=== PATIENT | male | born 1935 | race Caucasian/White ===

== ENCOUNTER 2017-03-14 08:39 | Inpatient (IN) | payer OTHER ==
[~2017-03-14] VITALS: Ht 172.7 cm; Wt 88.2 kg
[~2017-03-14 08:39] MED LIST: ATI1 PO; ECO81 PO; GLIPIZIDE1 PO1; GLIPIZIDE10 MG PO; LOP600 PO; LOT1C TOP; METFORMIN HCL1000 MG PO; ZESTRIL5 MG PO; ZOC10 PO
--- NOTE | 2017-03-14 09:21 | NUR ---
MSE COMPLETED BY DR. GONSALEZ
--- NOTE | 2017-03-14 09:36 | NUR ---
PT ATTEMPTING TO PROVIDE A URINE SAMPLE AT THIS TIME WITH URINAL PROVIDED
[2017-03-14 09:44] LABS: BASOPHIL % 0.1 % (0-2); PLATELET COUNT 292 x10^3mcL (130-400); RED CELL DISTRIBUTION WIDTH 13.8 % (11.5-14.5)
--- NOTE | 2017-03-14 10:00 | NUR ---
PT UNABLE TO PROVIDE URINE SAMPLE AT THIS TIME, INST PT TO PROVIDE URINE SAMPLE SOON POSSIBLE, IVF CURRENTLY INFUSING AT THIS TIME PER MD ORDER, PLEASE SEE EMAR, PT SOFY WELL, CALL LIGHT WITHIN REACH
[2017-03-14 10:03] LABS: ALKALINE PHOSPHATASE 94 U/L (46-116); ALT/SGPT 17 U/L (16-63); AST/SGOT 25 U/L (15-37); CARBON DIOXIDE 29.7 mmol/L (21-32); CHLORIDE SERUM 93 mmol/L (98-107); GLUCOSE SERUM 310 mg/dL (74-106); MAGNESIUM 1.4 mg/dL (1.8-2.4); PHOSPHOROUS 3.2 mg/dL (2.5-4.9); POTASSIUM SERUM 4.1 mmol/L (3.5-5.1); SODIUM SERUM 134 mmol/L (136-145); TOTAL PROTEIN, SERUM 7.2 g/dL (6.4-8.2)
--- NOTE | 2017-03-14 10:04 | NUR ---
PT TO BED 7 FOR C/O HIGH BLOOD SUGAR AND FEELING WEAK X 6-7 DAYS, BS IN TRIAGE 310, PT REPORTS HE WALKED HERE WITH HIS SON, PT STATING HE SAW HIS DOCTOR AND WAS PRESCRIBED MEDICATION BUT UNRECALLED OF THE NAME OF THE MEDICATION HE WAS PRESCRIBED, PT REPORTS HE HAD 1 EPISODE OF EMESIS THIS MORNING AFTER DRINKING MILK, PT STATING "I DON'T FEEL WELL" PT DENIES ANY PAIN, DENIES ANY DIZZINESS, PT AWAKE ALERT AND APPROPRIATE FOR AGE, ABLE TO VERBALIZE NEEDS BUT APPEARS TO BE A POOR HISTORIAN, PT RESP EVEN AND UNLABORED, IN NO ACUTE DISTRESS, CALL LIGHT WITHIN REACH, WILL CONTINUE TO MONITOR
[2017-03-14 10:08] LABS: ALBUMIN 2.8 g/dL (3.4-5.0)
[2017-03-14 10:10] LABS: CREATININE SERUM 4.5 mg/dL (0.7-1.3)
--- NOTE | 2017-03-14 10:47 | NUR ---
PT DAUGHTER AT BEDSIDE AT THIS TIME, DAUGHTER STS PT LIVES WITH SON AT HOME, DAUGHTER STS "HE IS STUBBORN" INQUIRED DAUGHTER IF SHE KNOWS THE MEDICATIONS PT TAKES AT HOME, PER DAUGHTER SHE WILL ASK HER BROTHER TO LOOK FOR PTS MEDICATIONS AT HOME, PT UNABLE TO STATE NAMES OF MEDICATION WHEN ASKED AGAIN BUT STS NEVER MISSED ANY DOSES WHEN ASKED, DAUGHTER STS HE SAW HIS DOCTOR LAST WEEK, DAUGHTER LEFT TO ATTEMPT TO RECEIVE PTS AT HOME MEDICATION LIST
--- NOTE | 2017-03-14 10:53 | NUR ---
PT ATTEMPTING TO PROVIDE URINE SAMPLE AT THIS TIME, URINAL PROVIDED, CALL LIGHT WTIHIN REACH
--- NOTE | 2017-03-14 12:01 | NUR ---
DR. GONSALEZ AT BEDSIDE DISCUSSING POC WITH PT AND PTS FAMILY MEMBER AT BEDSIDE AT THIS TIME
--- NOTE | 2017-03-14 12:13 | NUR ---
URINE DIPPED AND SENT TO LAB, DR. GONSALEZ DISCUSSING RESULTS WITH PT AND PTS FAMILY MEMBER AT THIS TIME
--- NOTE | 2017-03-14 12:53 | NUR ---
IV ABX INFUSING AT THIS TIME PER MD ORDER, PLEASE SEE GRETTA PT SOFY WELL, FAMILY MEMBERS AT BEDSIDE AT THIS TIME, MRSA SWAB COLLECTED AND SENT TO LAB
[2017-03-14 13:09] LABS: microscopic required? YES; urine erythrocyte 2+ (NEGATIVE)
--- NOTE | 2017-03-14 13:34 | NUR ---
REPORT GIVEN TO ISIDRO CHOWDHURY TELE FLOOR TO ASSUME CARE OF PT
[2017-03-14] MEDS ORDERED: LIPI10 PO (13:36)
[2017-03-14] MEDS ORDERED: DITROPAN XL15 MG PO (13:36)
[2017-03-14] MEDS ORDERED: INVOKANA100 MG PO (13:36)
[2017-03-14] MEDS ORDERED: IBUPROFEN400 MG PO (13:37)
[2017-03-14] MEDS ORDERED: PHENAZOPYRIDIN200 M3 PO (13:37)
[2017-03-14] MEDS ORDERED: MAPAP325 MG PO (13:38)
[2017-03-14] MEDS ORDERED: CIPRO500 MG PO (13:38)
--- NOTE | 2017-03-14 13:41 | NUR ---
REC'D PT FROM ER VIA [facility]. PT IS AAOX3, FORGETFUL. TELE #30 SR. DENIES PAIN. RESP EVEN AND UNLABORED. NO SOB NOTED. 1+ EDEMA NOTED TO BLE. ABD SOFT. BS ACTIVE X4. DENIES ABD PAIN OR N/V AT THIS TIME. PT C/O DIFFICULTY URINATING. IV NOTED TO LFA. INTACT AND PATENT. ORIENTED PT TO CALL LIGHT. BED IN LOWEST POSITION. WILL ENDORSE TO PRIMARY RN.
[2017-03-14 13:54] LABS: T3 TOTAL 0.59 ng/mL
[2017-03-14 13:55] VITALS: BP 130/66
[2017-03-14 14:04] LABS: FREE T4 1.18 ng/dL (0.76-1.46); FREE THYROXINE INDEX 2.6 ug/dL (1.4-4.5); T4(THYROXINE) 7.7 ug/dL (4.7-13.3)
--- NOTE | 2017-03-14 14:16 | NUR ---
RECEIVED REPORT FROM [facility]ON FELIX ADMITTING NURSE MADE AWARE PT'S RHYTHM ON MONITOR WAS IN AND OUT AFIB HR IN 90S AND RECEIVED TROP LEVEL OF 0.422. DR. MILES PAGED AND RETURN CALL MADE AWARE. AWAITING FURTHER ORDERS.
--- NOTE | 2017-03-14 15:00 | NUR ---
MADE AWARE PT RHYTHM CHANGED FROM AFIB TO IN AND OUT OF SR AND SA. MESSAGE SENT TO DR. MILES.
--- NOTE | 2017-03-14 15:10 | NUR ---
DR. MILES IN TO UPDATE PT AND FAMILY ON CONDITION AND POC. DISCUSSED +TROP, AFIB AND KIDNEY FUNCTION ISSUES WITH PT/FAMILY.
[2017-03-14 17:24] VITALS: BP 113/66
--- NOTE | 2017-03-14 17:50 | NUR ---
DR. MILES MADE AWARE VIA [facility], THAT PT'S RHYTHM ON TELE HAS NOT GONE TO AFIB SINCE RIGHT BEFORE 3PM HAS BEEN GOING IN AND OUT OF SR/SA/ST. HR 77-114. WILL CONT TO MONITOR.
--- NOTE | 2017-03-14 18:10 | NUR ---
NO LACTIC ACID ORDER NOTED. MESSAGE SENT TO DR. MILES. WILL CONT TO MONITOR.
--- NOTE | 2017-03-14 20:00 | NUR ---
PT A/A/O X3, FAMILY AT BEDSIDE. PT DENIES DIZZINESS AND HEADACHE. BREATH SOUNDS CLEAR. BREATHING EVEN AND UNLABORED ON ROOM AIR. DENIES CHEST PAIN AND PRESSURE. BOWEL SOUNDS ACTIVE. NO C/O N/V AND ABD PAIN. C/O DIFFICULTY URINATING. IV INTACT ON THE LEFT FOREARM INFUSING WITH NS AT 100 ML/HR. MADE PT COMFORTABLE. PLACED CALL LIGHT WITH IN REACH. WILL CONTINUE TO MONITOR.
[2017-03-14 21:13] LABS: AMPHETAMINE QUAL UR NONE DETECTED (NEG <=1000)
[2017-03-14 21:25] VITALS: BP 116/60
--- NOTE | 2017-03-15 00:58 | NUR ---
PT RESTING WITH EYES CLOSED. NO DISTRESS AND DISCOMFORT NOTED. WILL CONTINUE TO MONITOR.
--- NOTE | 2017-03-15 05:54 | NUR ---
PT QUIET AND RESTING. NO SIGNIFICANT CHANGES NOTED. IV INTACT AND INFUSING ORDERED. WILL ENDORSE TO THE AM NURSE ACCORDINGLY.
[2017-03-15 05:59] VITALS: BP 129/51
[2017-03-15 06:13] LABS: BASOPHIL % 0.1 % (0-2); PLATELET COUNT 276 x10^3mcL (130-400); RED CELL DISTRIBUTION WIDTH 14.4 % (11.5-14.5)
[2017-03-15 06:47] LABS: CALCIUM 8.3 mg/dL (8.5-10.1); CARBON DIOXIDE 29.6 mmol/L (21-32); CHLORIDE SERUM 99 mmol/L (98-107); GLUCOSE SERUM 140 mg/dL (74-106); MAGNESIUM 2.1 mg/dL (1.8-2.4); POTASSIUM SERUM 4.4 mmol/L (3.5-5.1); SODIUM SERUM 139 mmol/L (136-145)
--- NOTE | 2017-03-15 07:10 | NUR ---
PT IN BED, SITTING AT SIDE OF BED. NO DISTRESS. DENIES TREVIZO, CP, DIZZINESS. ABLE TO VERBALIZE NEEDS. IV INFUSING WELL TO LAC #20 NS 100ML/HR. CALL LIGHT WITHIN REACH, BED IN LOWEST POSITION.
[2017-03-15 07:16] LABS: CREATININE SERUM 4.7 mg/dL (0.7-1.3)
--- NOTE | 2017-03-15 08:45 | NUR ---
HEPARIN INFUSION TO BE INITIATED. HEPARIN PROTOCOL IN PLACE. CALCULATION COMPLETED. PT VERBALIZED UNDERSTANDING FOR THERAPY. GRANDDAUGHTER AT BEDSIDE. HEPARIN INFUSION VERIFIED BY ISIDRO LEE. INFUSION RATE AT 11ML/HR, BOLUS OF 5300UNITS GIVEN, PTT ORDERED IN 6HRS. (1500) PER PROTOCOL. CALL LIGHT WITHIN REACH. WILL CONTINUE TO MONITOR.
[2017-03-15 09:40] VITALS: BP 141/53
[2017-03-15 13:20] VITALS: BP 118/61
--- NOTE | 2017-03-15 13:25 | NUR ---
PT EATING LUNCH MEAL AT BEDSIDE CHAIR. TOLERATING DIET WELL. PASSED NOON MEDS, PT TOLERATED WELL. CALL LIGHT WITHIN REACH. FAMILY AT BEDSIDE.
--- NOTE | 2017-03-15 16:45 | NUR ---
RECEIVED LAB VALUE PTT: 70.2 HEPARIN INFUSION LOWERED TO 900UNITS/HR PER HEPARIN PROTOCOL. NEXT PTT ORDER IN 4HRS. WILL CONTINUE TO MONITOR.
[2017-03-15 17:00] VITALS: BP 89/62
--- NOTE | 2017-03-15 18:00 | NUR ---
HEPARIN INFUSION DC'D PER ORDER. PT TO START ORAL MEDICATION.
[2017-03-15 18:43] VITALS: BP 144/89
--- NOTE | 2017-03-15 20:36 | NUR ---
RECEIVED PT IN BED AAOX4 NO ACUTE DISTRESS NOTED , LUNG SOUNDS CTA , ABD SOFT BS ACTIVE X4 ON TELE NUMBER 30 THAT SHOWS NSR , PIV INTACT INFUSING WELL , CALL LIGHT WITHIN PT'S REACH , WILL CON'T TO MONITOR PT CLOSELY.
[2017-03-15 21:52] VITALS: BP 114/53
--- NOTE | 2017-03-16 02:02 | NUR ---
PT'S IN BED WITH EYES CLOSED PIV INTACT INFUSING WELL , TELE NSR .
[2017-03-16 06:01] VITALS: BP 136/63
[2017-03-16 06:26] LABS: BASOPHIL % 0.6 % (0-2); PLATELET COUNT 282 x10^3mcL (130-400); RED CELL DISTRIBUTION WIDTH 14.5 % (11.5-14.5)
--- NOTE | 2017-03-16 06:26 | NUR ---
ALL DUE MEDS GIVEN NO REACTION NOTED , PIV INTACT INFUSING WELL, KEPT PT CLEAN AND DRY AT ALL THE TIME , TELE NSR .
[2017-03-16 06:52] LABS: CALCIUM 8.2 mg/dL (8.5-10.1); CARBON DIOXIDE 25.2 mmol/L (21-32); CHLORIDE SERUM 103 mmol/L (98-107); GLUCOSE SERUM 97 mg/dL (74-106); PHOSPHOROUS 4.6 mg/dL (2.5-4.9); SODIUM SERUM 141 mmol/L (136-145)
[2017-03-16 07:00] LABS: CREATININE SERUM 5.1 mg/dL (0.7-1.3)
--- NOTE | 2017-03-16 07:50 | NUR ---
AWAKE ,ALERT AND ABLE TO VERBALIZED NEEDS.REQUIRES. MOD. ASSIST. W/ ADL NEEDS.CONT. IV FLUIDS AND IV ANTIBIOTIC ORDERED.CALL LIGHT W/ IN REACH NO ACUTE RESP. DISTRESS NOTED.PT. EVAL AND TX. VOIDING IN URINAL.WILL CONT. PLAN OF CARE.
--- NOTE | 2017-03-16 08:40 | NUR ---
DR. HART WAS HERE W/ OTHER MEDICAL STAFF MADE ROUNDS AND UPDTATED PT. PLAN OF CARE.
[2017-03-16 09:57] VITALS: BP 115/61
[2017-03-16 14:00] VITALS: BP 111/51
--- NOTE | 2017-03-16 14:32 | NUR ---
Initial Nutrition Assessment Dx: Urinary tract infection and renal failure PMHx:DM, HTN, HLD, Prostate Cancer s/p resection 8 years ago PSHx: Radical prostectomy, Bilateral inguinal repair Labs: 03/16: B, BUN:76, Cr:5.1H, Ca:8.2L, H/H:9.1/28L (03/14) TH, Trop:0.345,0.211, A1c:9.7H, Meds:Antivert, Colace, Glucotrol, Humulin, Lactinex, NS IV, Zofran Diet:CCHO PO Intake: 03/15: B:80%, L:100% D:100%, 03/16: B:100% Ht:68in, 5'8" Wt:194#, 88.19kg BMI: 29.6kg/m2 (overweight) IBW:154#, 70kg %IBW:126% UBW:unknown Age:81 y/o male Food Allergies:NKFA Skin:intact Shan: 20 Edema:None GI:active bowel sounds Last BM:03/13 Nutrition consult: alb 2.8 with weakness and diziness Pt admitted with Disorder of ANS with dizziness poss secondary to UTI, r/o CVA and elevated troponin, new onset atrail fibrilation with RVR, per H&P. Per progress note 03/15, pt qualified for Eliquis and pt is pending a renal/bladder ultrasound and nephrology consult. Per bed huddle this morning, renal ultrasound showed solid mass. Possible biopsy. During visit, pt was asleep. Spoke to pt's daughter and mother who reports pt has a good appetite with no c/o N/V/D/C. Pt with missing teeth and does not have dentures with him. RD offered to change texture of food but pt's daughter only wanted protein to be cut-up. No issues with swallowing. Problem with: N: No V:No D:No C:No Problems with: Chewing:yes, pt with missing teeth Swallowing: No Current appetite: Good Recent wt change:N/A %wt change:N/A Vitamin/Supplement use:No Special diet at home:regualr Physical activity:None Education: pt's daughter declined nutrition education at this time. Estimated Nutritional Needs Based on ideal body weight 70kg Energy:6072-9376 kcal/d (25-30kcal/kg for geriatric maintenance) Protein:42-56 g/d (0.6-0.8g/kg for CKD stage V) Fluid: 1750-2250ml/d (1 ml/kcal) or per doctor Nutrition Diagnosis 1. Altered nutrition labs related to endocrine and renal dysfunction as evidenced by elevated A1c:9.7, BUN:76 and Creatinine:5.1 2. Chewing difficutlires related to pt with missing teeth as evidenced by pt unable to eat hard foods (protein) Intervention 1.Recommend CCHO 60g protein diet due to pt with diabetes and CKD stage V. 2. RD to update Compnutrition with texture change to cut-up for protein. Monitor/Evaluate Goal: PO intake at least 75% of estimated needs Monitor: PO intake, Labs, GI function F/U in 3-5 days as moderate risk:03/19-5
--- NOTE | 2017-03-16 14:34 | NUR ---
1.Recommend [facility] 60g protein diet due to pt with diabetes and CKD stage V. 2. RD to update Compnutrition with texture changed to cut-up for protein.
--- NOTE | 2017-03-16 17:00 | NUR ---
PT. ASSISTED TO AMBUILATE IN THE BATHROOM AND VOIDING DENIES ANY BURNING OR PAIN DURING URINATION.
[2017-03-16 17:48] VITALS: BP 150/68
--- NOTE | 2017-03-16 20:10 | NUR ---
RECEIVED PT IN BED AAOX4 , PT RESUESTED FOR BATH CORRECTIONAL OFFICER SERGEANT WILL ASSIST PT WITH BATH , PT DENY CHEST PAIN , LUNG SOUNDS CTA , ABD SOFT BS ACTIVE X4, PT'S CONTINENT/INCONTINENT OF BLADDER USES OWN DEPENDS . WILL KEEP PT CLEAN AND DRY AT ALL THE TIME . PIV INTACT INFUSING WELL .
[2017-03-16 21:23] VITALS: BP 140/61
--- NOTE | 2017-03-17 05:57 | NUR ---
PT'S INCONTINENT OF BLADDER USED DEPENDS THROUGHOUT THE NIGHT UNABLE TO MAINTAINED STRICT I&O'S , PIV INTACT INFUSING WELL , TELE NSR . PT IN NO DISTRESS , ALL DUE MEDS GIVEN NO REACTION NOTED
[2017-03-17 06:12] VITALS: BP 152/73
[2017-03-17 06:40] LABS: BASOPHIL % 0.6 % (0-2); PLATELET COUNT 353 x10^3mcL (130-400); RED CELL DISTRIBUTION WIDTH 14.4 % (11.5-14.5)
[2017-03-17 06:43] LABS: CALCIUM 8.4 mg/dL (8.5-10.1); CARBON DIOXIDE 24.1 mmol/L (21-32); CHLORIDE SERUM 106 mmol/L (98-107); GLUCOSE SERUM 131 mg/dL (74-106); POTASSIUM SERUM 5.1 mmol/L (3.5-5.1); SODIUM SERUM 141 mmol/L (136-145)
[2017-03-17 06:46] LABS: CREATININE SERUM 5.1 mg/dL (0.7-1.3)
--- NOTE | 2017-03-17 07:40 | NUR ---
RC'D PT RESTING IN BED WITH NO APPARENT SIGNS OF DISTRESS. A/A/O/X4, SPEECH CLEAR AND APPROPRIATE. ON TELE 30. DENIES CHEST PAIN/PRESSURE. PALP PULSES, NO EDEMA NOTED. REPSIRATIONS EQUAL AND UNLABORED BILAT. LUNGS CTA. ON RA, DENIES SOB. ABDOMEN SOFT AND NONTENDER. ACTIVE BS. DENIES N/V. INCONTINENT AT TIMES. WEARS DEPENDS. BRP WITH ASSISTANCE. GENERALIZED WEAKNESS. SKIN W/D/I. DENIES PAIN AT THIS TIME. IV PATENT AND INFUSING. EDUCATED ON USING CALL LIGHT WHEN NEEDING ASSISTANCE. CALL LIGHT IN REACH. BED IN LOW POSITION. WILL CONTINUE TO MONITOR.
[2017-03-17 09:33] VITALS: BP 155/72
--- NOTE | 2017-03-17 10:17 | NUR ---
RECEIVED ORDERS FOR CT GUIDED BIOPSY OF LEFT RENAL MASS. LAST PTT IS 70 SEC. SPOKE WITH PATIENT'S NURSE TROY. HELIO HAS BEEN ON HOLD SINCE YESTERDAY. ORDERING PHYSICIAN IS SPEAKING WITH PATIENT AND FAMILY REGARDING THE PLANNED PROCEDURE. REQUESTED PATIENT BE KEPT NPO AND REPEAT PTT NICOEL.
--- NOTE | 2017-03-17 10:34 | NUR ---
PAGED DR LONGORIA TO REQUEST A REPEAT PTT. AWAITING CALLBACK.
--- NOTE | 2017-03-17 11:56 | NUR ---
DR ANDERSON REVIEWED PRIOR IMAGES AND ORDER FOR BIOPSY OF LEFT RENAL MASS. WOULD LIKE A CT DONE TO CONFIRM MASS, UNABLE TO USE CONTRAST DUE TO EXTREMELY HIGH BUN/CREATININE. DR LONGORIA CALLED AND WOULD ALSO LIKE A RENAL BIOPSY FOR RENAL FUNCTION. SPOKE WITH PATHOLOGIST DR VOGEL, ORDER NEEDS TO SPECIFY LATERALITY AND SPECIMEN PLACED IN SALINE AND HANDED TO WINDOWS CONSULTANT. DUE TO PATIENT TAKING ELIQUIS, DR ANDERSON WOULD DEFER THE PROCEDURE UNTIL TOMORROW, OFF ELIQUIS FOR 48 HOURS PER RECOMMENDED STANDARDS. SPOKE WITH THAD IN PATHOLOGY AND SHE WILL BE AVAILABLE TOMORROW AT 11 AM. SPOKE WITH PATIENT'S NURSE TROY TO REQUEST ORDER FOR CT OF ABDOMEN AND ORDER FOR RENAL BIOPSY FOR RENAL FUNCTION FOR TOMORROW.
--- NOTE | 2017-03-17 13:18 | NUR ---
PT RESTING IN BED WITH NO APPARENT SIGNS OF DISTRESS. FAMILY PRESENT AT BEDSIDE. RESPIRATIONS EQUAL AND UNLABORED BILAT. NO APPARENT SIGNS OF PAIN/DISCOMFORT AT THIS TIME. BED IN LOW POSITION. CALL LIGHT IN REACH. WILL CONTINUE TO MONITOR.
[2017-03-17 15:19] LABS: UA SPECIFIC GRAVITY <=1.005 (1.005-1.035); microscopic required? YES; urine erythrocyte 3+ (NEGATIVE)
--- NOTE | 2017-03-17 16:57 | NUR ---
P.T. NOTES Pt WAS SEEN AWAKE & ALERT IN BED, SPEAKS INDONESIAN, DAUGHTER IN ROOM, DECLINED TO PARTICIPATE W/ P.T., EXPLAINED BENEFITS OF THERAPY, Pt STILL DECLINED & WANTS TO REST, DAUGHTER STATES "HE IS JUST GROUCHY BECAUSE HE HAS NOT EATEN YET, HE HAS BEEN WALKING TO THE BATHROOM THOUGH", APPRECIATIVE; CALL COREAS, PHONE, TABLE IN REACH, F/C INTACT; ON ROOM AIR, BED ALARM ON; FOLLOW UP TOMORROW. PVE
--- NOTE | 2017-03-17 17:09 | NUR ---
PT RESTING IN BED WITH NO APPARENT SIGNS OF DISTRESS. RESPIRATIONS EQUAL AND UNLABORED. CALL LIGHT IN REACH. BED IN LOW POSITION. WILL CONTINUE TO MONITOR.
[2017-03-17 17:39] VITALS: BP 166/72
--- NOTE | 2017-03-17 18:19 | NUR ---
FAMILY PRESENT AT BEDSIDE. PT RESTING IN BED WITH NO APPARENT SIGNS OF DISTRESS. RESPIRATIONS EQUAL AND UNLABORED BILAT. ON TELE 30 WITH NSR. IV PATENT AND INFUSING. BED IN LOW POSITION. CALL LIGHT IN REACH. WILL CONTINUE TO MONITOR.
--- NOTE | 2017-03-17 19:35 | NUR ---
PT. AWAKE, ALERT, ORIENTED X4. DENIES HEADACHE OR DIZZINESS. BREATH SOUNDS CLEAR THROUGHOUT LUNG CEDENO, RESP. EVEN, UNLABORED. NO SOB NOTED. DENIES CHESTPAIN OR DISCOMFORT. NO EDEMA NOTED TO EXTREMITIES. PEDAL PULSES MODERATE. ABD. SOFT AND ROUND, BOWEL SOUNDS ACTIVE. NO ABD. PAIN, NO NAUSEA. IVF NS AT 150CC/HR. CALL LIGHT WITHIN REACH. BED LOW LAYING W/ ALARM ON.
[2017-03-17 20:25] LABS: ALKALINE PHOSPHATASE 86 U/L (46-116); ALT/SGPT 17 U/L (16-63); AST/SGOT 25 U/L (15-37); BILIRUBIN TOTAL 0.3 mg/dL (0.20-1.00); CALCIUM 7.8 mg/dL (8.5-10.1); CHLORIDE SERUM 108 mmol/L (98-107); GLUCOSE SERUM 270 mg/dL (74-106); POTASSIUM SERUM 4.6 mmol/L (3.5-5.1); SODIUM SERUM 141 mmol/L (136-145)
[2017-03-17 20:58] LABS: ALBUMIN 2.1 g/dL (3.4-5.0); CREATININE SERUM 4.7 mg/dL (0.7-1.3)
[2017-03-17 21:16] VITALS: BP 156/69
--- NOTE | 2017-03-18 03:53 | NUR ---
PT. ASSISTED OOB TO BATHROOM AND BACK TO BED. NO COMPLAINTS THUS FAR. IVF INFUSING WELL. CALL LIGHT REMAINS WITHIN REACH.
[2017-03-18 05:45] VITALS: BP 150/72
--- NOTE | 2017-03-18 06:10 | NUR ---
PT. AWAKE, SITTING UP INE BED. AWARE OF BEING NPO. AWARE OF POSSIBLE BIOPSY PROCEDURE TODAY. CALL LIGHT WITHIN REACH.
[2017-03-18 06:19] LABS: BASOPHIL % 0.4 % (0-2); PLATELET COUNT 361 x10^3mcL (130-400); RED CELL DISTRIBUTION WIDTH 14.4 % (11.5-14.5)
[2017-03-18 06:33] LABS: CARBON DIOXIDE 21.1 mmol/L (21-32); CHLORIDE SERUM 111 mmol/L (98-107); GLUCOSE SERUM 83 mg/dL (74-106); PHOSPHOROUS 5.2 mg/dL (2.5-4.9); POTASSIUM SERUM 4.9 mmol/L (3.5-5.1); SODIUM SERUM 143 mmol/L (136-145)
[2017-03-18 06:46] LABS: CREATININE SERUM 4.5 mg/dL (0.7-1.3)
--- NOTE | 2017-03-18 08:00 | NUR ---
RC'D PT RESTING IN BED WITH NO APPARENT SIGNS OF DISTRESS. A/A/O/X4, SPEECH CLEAR AND APPROPRIATE. ON TELE 30. DENIES CHEST PAIN/PRESSURE. PALP PULSES, NO EDEMA NOTED. RESPIRATIONS EQUAL AND UNLABORED. LUNGS CTA. ON RA, DENIES SOB. ABDOMEN SOFT AND NONTENDER. ACTIVE BS. DENIES N/V. PT REPORTS DYURIA. WYNN IN PLACE, YELLOW URINE NO FOUL SMELL NOTED. GENERALIZED WEAKNESS. AMBULATORY WITH ASSIST. SKIN W/D/I. DENIES PAIN AT THIS TIME. IV PATENT AND INFUSING. BED IN LOW POSITION. EDUCATED ON USING CALL LIGHT WHEN NEEDING ASSISTANCE. CALL LIGHT IN REACH. WILL CONTINUE TO MONITOR.
[2017-03-18 08:33] VITALS: BP 150/73
[2017-03-18 09:04] LABS: ANTI-GLOMERULAR ANTIBODIES 4 units (0-20); COMPLEMENT C3 114 mg/dL (82-167); COMPLEMENT C4 29 mg/dL (14-44)
--- NOTE | 2017-03-18 10:30 | NUR ---
RECEIVED CALL FROM DR LONGORIA, RENAL BIOPSY HAS BEEN CANCELLED.
--- NOTE | 2017-03-18 12:16 | NUR ---
PT RESTING IN BED WITH NO APPARENT SIGNS OF DISTRESS. RESPIRATIONS EQUAL AND UNLABORED BILAT. DENIES PAIN AT THIS TIME. BED IN LOW POSITION. FAMILY PRESENT AT BEDSIDE. WILL CONTINUE TO MONITOR.
[2017-03-18] MEDS ORDERED: METOPROLOL TART25 M1 PO (13:15)
[2017-03-18 13:19] LABS: cnab c-anca <1:20 titer (Neg:<1:20); cnab p-anca <1:20 titer (Neg:<1:20)
[2017-03-18] MEDS ORDERED: LOP600 PO (13:32)
[2017-03-18] MEDS ORDERED: COL100 PO (13:34)
[2017-03-18] MEDS ORDERED: LAC PO (13:37)
[2017-03-18] MEDS ORDERED: CIPRO500 MG PO (13:44)
[2017-03-18] MEDS ORDERED: ELIQUIS2.5 MG PO (14:21)
[2017-03-18 14:22] VITALS: BP 150/73
--- NOTE | 2017-03-18 16:12 | NUR ---
PT PROVIDED WITH DC HOME INSTRUCTIONS. GIVEN MEDICATION EDUCATION. MADE AWARE PRESCRIPTIONS HAVE BEEN SENT TO PT'S SELECTED PHARMACY. MADE AWARE OF FOLLOW UP APPT WITH PCP. INSTRUCTED ON IMPORTANCE OF COMPLETING ANTIBIOTIC TX ORDERED. MADE AWARE OF WORSENING SIGNS AND SYMPTOMS TO RETURN TO ED OR REPORT TO PCP. PT VERBALIZED UNDERSTANDING OF INSTRUCTIONS. TELE AND IV DC'D, CATHETER INTACT. PT TRANSPORTED VIA WC TO THE LOBBY WITH ALL PERSONAL BELONGINGS IN HAND ACCOMPANIED BY MANAGER EQUITY AND FAMILY FREE OF ANY APPARENT DISTRESS.
--- NOTE | 2017-03-18 16:23 | NUR ---
PT NOTES 1010 (PVE) Patient cleared by RN, but patient refused PT tx at this time as patient states he will be d/c soon, dtrs at bedside and agreement not to participate with therapy. Patient educated about benefits of mobility and consequences of immobility, but cont to refused. Cont with PT POC as denisse/safe if not d/c today. Nursing aware.
[2017-03-19 07:23] LABS: COMPLEMENT TOTAL/CH50 > 60 U/mL (42-60)
[2017-03-22 10:19] LABS: microalbumin:creatinine ratio 190.9 (0.0-30.0)
== END 2017-03-18 16:12 | disposition home health service (06) | DRG 689 ==
LOC: ED 08:39 → DU 12:19
PROVIDERS: Emergency Medicine; Family Medicine; Internal Medicine; Internal Medicine Nephrology; ADMIT Family Medicine
DX: N39.0 Urinary tract infection, site not specified (principal); N17.0 Acute kidney failure with tubular necrosis; E43 Unspecified severe protein-calorie malnutrition; E87.1 Hypo-osmolality and hyponatremia; R31.9 Hematuria, unspecified; I48.91 Unspecified atrial fibrillation; E86.0 Dehydration; E11.65 Type 2 diabetes mellitus with hyperglycemia; E11.51 Type 2 diabetes mellitus with diabetic peripheral angiopathy without gangrene; I10 Essential (primary) hypertension; E78.1 Pure hyperglyceridemia; E78.5 Hyperlipidemia, unspecified; M62.50 Muscle wasting and atrophy, not elsewhere classified, unspecified site; Z68.29 Body mass index [BMI] 29.0-29.9, adult; Z85.46 Personal history of malignant neoplasm of prostate
CPT/HCPCS: 76770; 83516; 83520; 83880; 84439; 86256; 97110-GP; 97116-GP; 97530-GP; J0696; J1644; J3475; J7030; Q0092

== ENCOUNTER 2018-07-02 10:10 | Emergency (ER) | payer OTHER ==
[~2018-07-02] VITALS: Ht 170.2 cm; Wt 78.5 kg
[~2018-07-02 10:10] MED LIST changes: +CIPRO500 MG PO; +COL100 PO; +DITROPAN XL15 MG PO; +ELIQUIS2.5 MG PO; +IBUPROFEN400 MG PO; +INVOKANA100 MG PO; +LAC PO; +LIPI10 PO; +MAPAP325 MG PO; +METOPROLOL TART25 M1 PO; +PHENAZOPYRIDIN200 M3 PO
[2018-07-02 10:23] VITALS: Ht 170.2 cm; Wt 78.5 kg
[2018-07-02] MEDS ORDERED: FUROSEMIDE20 MG PO (12:41)
[2018-07-02] MEDS ORDERED: TOPROL XL25 MG PO (12:42)
[2018-07-02] MEDS ORDERED: TRULICITY0.75 MG/0. SC (12:42)
[2018-07-02 13:47] LABS: BASOPHIL % 1.1 % (0-2); PLATELET COUNT 260 x10^3mcL (130-400)
[2018-07-02 13:51] LABS: CALCIUM 9.1 mg/dL (8.5-10.1); CARBON DIOXIDE 28.3 mmol/L (21-32); CHLORIDE SERUM 104 mmol/L (98-107); CREATININE SERUM 0.9 mg/dL (0.7-1.3); GLUCOSE SERUM 152 mg/dL (74-106); POTASSIUM SERUM 3.6 mmol/L (3.5-5.1); SODIUM SERUM 138 mmol/L (136-145)
[2018-07-02 13:56] LABS: ALBUMIN 3.7 g/dL (3.4-5.0); ALKALINE PHOSPHATASE 74 U/L (46-116); ALT/SGPT 24 U/L (16-63); AST/SGOT 16 U/L (15-37); BILIRUBIN TOTAL 0.6 mg/dL (0.20-1.00); TOTAL PROTEIN, SERUM 7.4 g/dL (6.4-8.2)
[2018-07-02 16:07] LABS: RED CELL DISTRIBUTION WIDTH 14.6 % (11.5-14.5)
[2018-07-02 17:05] VITALS: BP 159/92
== END 2018-07-02 17:05 | disposition home or self-care (01) ==
LOC: ED 10:10
PROVIDERS: Emergency Medicine
DX: M79.652 Pain in left thigh (principal); M79.651 Pain in right thigh; E11.9 Type 2 diabetes mellitus without complications; R53.1 Weakness; I10 Essential (primary) hypertension
CPT/HCPCS: 36415; J1885

== ENCOUNTER 2019-08-03 12:12 | Emergency (ER) | payer OTHER ==
[~2019-08-03] VITALS: Ht 175.3 cm; Wt 72.6 kg
[~2019-08-03 12:12] MED LIST changes: +FUROSEMIDE20 MG PO; +TOPROL XL25 MG PO; +TRULICITY0.75 MG/0. SC
[2019-08-03 12:18] VITALS: Ht 175.3 cm; Wt 72.6 kg
[2019-08-03 13:01] LABS: BASOPHIL % 0.3 % (0-2); PLATELET COUNT 375 x10^3mcL (130-400)
[2019-08-03 13:15] LABS: RED CELL DISTRIBUTION WIDTH 16.5 % (11.5-14.5)
[2019-08-03 13:42] LABS: ALKALINE PHOSPHATASE 154 U/L (46-116); ALT/SGPT 19 U/L (16-63); AST/SGOT 34 U/L (15-37); CALCIUM 8.6 mg/dL (8.5-10.1); CARBON DIOXIDE 28.4 mmol/L (21-32); CHLORIDE SERUM 97 mmol/L (98-107); CREATININE SERUM 0.7 mg/dL (0.7-1.3); GLUCOSE SERUM 131 mg/dL (74-106); POTASSIUM SERUM 4.1 mmol/L (3.5-5.1); SODIUM SERUM 133 mmol/L (136-145); TOTAL PROTEIN, SERUM 6.7 g/dL (6.4-8.2)
[2019-08-03 13:49] LABS: ALBUMIN 2.4 g/dL (3.4-5.0)
[2019-08-03 14:00] LABS: BILIRUBIN TOTAL 0.37 mg/dL (0.20-1.00)
[2019-08-03 17:25] VITALS: BP 135/74
== END 2019-08-03 17:25 | disposition home or self-care (01) ==
LOC: ED 12:12
DX: F10.10 Alcohol abuse, uncomplicated (principal); R10.13 Epigastric pain; R11.10 Vomiting, unspecified; I10 Essential (primary) hypertension; E11.9 Type 2 diabetes mellitus without complications
CPT/HCPCS: J2765; Q0092

== ENCOUNTER 2019-08-14 14:40 | Inpatient (IN) | payer OTHER ==
[~2019-08-14] VITALS: Ht 175.3 cm; Wt 70.3 kg
[2019-08-14 14:50] VITALS: Ht 175.3 cm; Wt 70.3 kg
[2019-08-14 15:45] LABS: BASOPHIL % 0.4 % (0-2)
[2019-08-14 15:48] LABS: RED CELL DISTRIBUTION WIDTH 18.2 % (11.5-14.5)
[2019-08-14 15:54] LABS: CALCIUM 8.5 mg/dL (8.5-10.1); CHLORIDE SERUM 98 mmol/L (98-107); CREATININE SERUM 0.9 mg/dL (0.7-1.3); GLUCOSE SERUM 135 mg/dL (74-106); POTASSIUM SERUM 3.6 mmol/L (3.5-5.1); SODIUM SERUM 135 mmol/L (136-145)
[2019-08-14 15:59] LABS: ALKALINE PHOSPHATASE 137 U/L (46-116); ALT/SGPT 26 U/L (16-63); AST/SGOT 32 U/L (15-37); BILIRUBIN TOTAL 0.23 mg/dL (0.20-1.00); TOTAL PROTEIN, SERUM 6.3 g/dL (6.4-8.2)
[2019-08-14 16:02] LABS: rbc morphology (normal/abnorm) ABNORMAL (NORMAL)
[2019-08-14 16:03] LABS: PLATELET COUNT 671 x10^3mcL (130-400)
[2019-08-14 16:07] LABS: ALBUMIN 2.1 g/dL (3.4-5.0)
[2019-08-14 21:55] VITALS: BP 150/81
[2019-08-15 05:46] VITALS: BP 122/50
[2019-08-15 07:25] LABS: CHLORIDE SERUM 102 mmol/L (98-107); CREATININE SERUM 0.8 mg/dL (0.7-1.3); GLUCOSE SERUM 93 mg/dL (74-106); POTASSIUM SERUM 3.9 mmol/L (3.5-5.1); SODIUM SERUM 135 mmol/L (136-145)
[2019-08-15 08:06] VITALS: BP 132/59
[2019-08-15 08:58] LABS: RED CELL DISTRIBUTION WIDTH 17.8 % (11.5-14.5)
[2019-08-15 12:37] VITALS: BP 119/49
[2019-08-15 13:03] LABS: rbc morphology (normal/abnorm) ABNORMAL (NORMAL)
[2019-08-15 14:26] LABS: PLATELET COUNT 532 x10^3mcL (130-400)
[2019-08-15 14:28] LABS: SEGMENTED NEUTROPHILS 67 % (37-75)
[2019-08-15 14:29] LABS: ATYPICAL LYMPH 0 %; BAND NEUTROPHIL 0 % (0-10); BASOPHIL 0 % (0-2); MONOCYTE 14 % (0-7); PLATELET MORPHOLOGY PLATELETS INCREASED
[2019-08-15 15:40] VITALS: BP 114/50
[2019-08-15 16:19] VITALS: BP 136/60
[2019-08-15 19:41] VITALS: BP 120/56
[2019-08-16 05:17] VITALS: BP 129/60
[2019-08-16 06:28] LABS: BASOPHIL % 0.5 % (0-2)
[2019-08-16 06:36] LABS: RED CELL DISTRIBUTION WIDTH 16.9 % (11.5-14.5)
[2019-08-16 06:53] LABS: CALCIUM 8.5 mg/dL (8.5-10.1); CARBON DIOXIDE 24.7 mmol/L (21-32); CHLORIDE SERUM 104 mmol/L (98-107); CREATININE SERUM 0.8 mg/dL (0.7-1.3); GLUCOSE SERUM 102 mg/dL (74-106); POTASSIUM SERUM 4.4 mmol/L (3.5-5.1); SODIUM SERUM 137 mmol/L (136-145)
[2019-08-16 07:25] LABS: PLATELET COUNT 575 x10^3mcL (130-400)
[2019-08-16 07:54] VITALS: BP 138/61
[2019-08-16 12:53] VITALS: BP 84/57
[2019-08-16 14:36] VITALS: BP 103/48
[2019-08-16 16:32] VITALS: BP 108/55
[2019-08-16 20:25] VITALS: BP 98/48
[2019-08-17 05:44] VITALS: BP 116/59
[2019-08-17 07:30] VITALS: BP 162/66
[2019-08-17 12:38] VITALS: BP 110/72
[2019-08-17 17:44] VITALS: BP 102/62
[2019-08-17 17:48] VITALS: BP 110/72
== END 2019-08-17 18:35 | DRG 391 ==
LOC: ED 14:40 → DU 16:38
PROVIDERS: Emergency Medicine; Internal Medicine Gastroenterology; ADMIT Internal Medicine
PROC: 30233N1 Transfusion of Nonautologous Red Blood Cells into Peripheral Vein, Percutaneous Approach (ICD-10-PCS; principal; 2019-08-14)
PROC: 0DB68ZX Excision of Stomach, Via Natural or Artificial Opening Endoscopic, Diagnostic (ICD-10-PCS; 2019-08-15)
PROC: 0DB38ZX Excision of Lower Esophagus, Via Natural or Artificial Opening Endoscopic, Diagnostic (ICD-10-PCS; 2019-08-15 10:30)
DX: K21.0 Gastro-esophageal reflux disease with esophagitis (principal); K22.11 Ulcer of esophagus with bleeding; D68.9 Coagulation defect, unspecified; D62 Acute posthemorrhagic anemia; K22.70 Barrett's esophagus without dysplasia; E11.65 Type 2 diabetes mellitus with hyperglycemia; K44.9 Diaphragmatic hernia without obstruction or gangrene; I48.91 Unspecified atrial fibrillation; I10 Essential (primary) hypertension; K59.00 Constipation, unspecified; K70.30 Alcoholic cirrhosis of liver without ascites; F10.20 Alcohol dependence, uncomplicated; Z79.82 Long term (current) use of aspirin; Z79.01 Long term (current) use of anticoagulants; Z79.84 Long term (current) use of oral hypoglycemic drugs; Z79.1 Long term (current) use of non-steroidal anti-inflammatories (NSAID); Z83.3 Family history of diabetes mellitus; Z80.8 Family history of malignant neoplasm of other organs or systems; Z80.0 Family history of malignant neoplasm of digestive organs; Z68.28 Body mass index [BMI] 28.0-28.9, adult
CPT/HCPCS: 43235; 82962; 83880; 88344; 97116-GP; 97530-GP; C9113; G0378; J1200; J1610; J2250; J2310; J2916; J3010; J3490; J7050; J8597; P9016; Q0092

== ENCOUNTER 2019-10-24 14:09 | Inpatient (IN) | payer OTHER, SELFPAY ==
[~2019-10-24] VITALS: Ht 175.3 cm; Wt 68.2 kg
[2019-10-24 14:27] VITALS: Ht 175.3 cm; Wt 68.2 kg
[2019-10-24 14:58] LABS: BASOPHIL % 0.4 % (0-2)
[2019-10-24 15:01] LABS: RED CELL DISTRIBUTION WIDTH 18.1 % (11.5-14.5)
[2019-10-24 15:02] LABS: PLATELET COUNT 595 x10^3mcL (130-400)
[2019-10-24 15:11] LABS: CALCIUM 8.3 mg/dL (8.5-10.1); CARBON DIOXIDE 21.3 mmol/L (21-32); CHLORIDE SERUM 96 mmol/L (98-107); CREATININE SERUM 0.9 mg/dL (0.7-1.3); GLUCOSE SERUM 109 mg/dL (74-106); POTASSIUM SERUM 4.6 mmol/L (3.5-5.1); SODIUM SERUM 131 mmol/L (136-145)
[2019-10-24 15:15] LABS: ALKALINE PHOSPHATASE 239 U/L (46-116); ALT/SGPT 16 U/L (16-63); AST/SGOT 30 U/L (15-37); BILIRUBIN DIRECT 0.15 mg/dL (0.0-0.2); BILIRUBIN TOTAL 0.3 mg/dL (0.20-1.00); TOTAL PROTEIN, SERUM 6.6 g/dL (6.4-8.2)
[2019-10-24 15:18] LABS: ALBUMIN 2.3 g/dL (3.4-5.0)
[2019-10-24 15:27] LABS: T3 TOTAL 0.55 ng/mL
[2019-10-24 15:40] LABS: FREE T4 1.06 ng/dL (0.76-1.46); FREE THYROXINE INDEX 2.6 ug/dL (1.4-4.5); T4(THYROXINE) 7.5 ug/dL (4.7-13.3)
[2019-10-24] MEDS ORDERED: PRILOSEC OTC20 M1 PO (15:51)
[2019-10-24] MEDS ORDERED: REGLAN10 M1 PO (15:51)
[2019-10-24] MEDS ORDERED: BACTRIM DS1 TAB PO (15:52)
[2019-10-24] MEDS ORDERED: ATORVASTATIN CA20 M1 (15:53)
[2019-10-24] MEDS ORDERED: FEOSOL65 M1 PO (15:53)
[2019-10-24 17:25] VITALS: BP 127/62
[2019-10-24 18:52] VITALS: BP 118/56
[2019-10-24 20:35] VITALS: BP 100/47
[2019-10-24 22:25] VITALS: BP 104/53
[2019-10-25 06:34] VITALS: BP 106/49
[2019-10-25 07:24] LABS: BASOPHIL % 0.4 % (0-2)
[2019-10-25 07:26] LABS: CALCIUM 8.6 mg/dL (8.5-10.1); CARBON DIOXIDE 24.9 mmol/L (21-32); CHLORIDE SERUM 101 mmol/L (98-107); CREATININE SERUM 0.6 mg/dL (0.7-1.3); GLUCOSE SERUM 81 mg/dL (74-106); POTASSIUM SERUM 4.3 mmol/L (3.5-5.1); SODIUM SERUM 133 mmol/L (136-145)
[2019-10-25 08:22] LABS: RED CELL DISTRIBUTION WIDTH 18.4 % (11.5-14.5)
[2019-10-25 08:33] LABS: PLATELET COUNT 517 x10^3mcL (130-400)
[2019-10-25 09:08] VITALS: BP 121/74
[2019-10-25 13:10] VITALS: BP 100/60
[2019-10-25 17:12] VITALS: BP 105/54
[2019-10-25 17:34] LABS: microscopic required? NO
[2019-10-25 17:43] LABS: urine erythrocyte NEGATIVE (NEGATIVE)
[2019-10-25 21:08] VITALS: BP 105/52
[2019-10-26 05:15] VITALS: BP 118/52
[2019-10-26 09:07] VITALS: BP 117/57
[2019-10-26] MEDS ORDERED: ACIDOPHILUS-PE1 EAC1 PO (10:01)
[2019-10-26 12:56] VITALS: BP 112/49
[2019-10-26 13:15] LABS: IRON 13 ug/dL (65-170); TOTAL IRON BINDING CAPACITY 155 ug/dL (250-450)
[2019-10-26 18:02] VITALS: BP 110/53
[2019-10-26 19:24] LABS: BASOPHIL % 0.1 % (0-2)
[2019-10-26 19:36] LABS: PLATELET COUNT 514 x10^3mcL (130-400); RED CELL DISTRIBUTION WIDTH 17.4 % (11.5-14.5)
[2019-10-26 21:08] VITALS: BP 101/45
[2019-10-27 05:07] VITALS: BP 109/49
[2019-10-27 07:03] LABS: CALCIUM 8.4 mg/dL (8.5-10.1); CARBON DIOXIDE 25.6 mmol/L (21-32); CHLORIDE SERUM 98 mmol/L (98-107); CREATININE SERUM 0.8 mg/dL (0.7-1.3); GLUCOSE SERUM 89 mg/dL (74-106); POTASSIUM SERUM 4.4 mmol/L (3.5-5.1); SODIUM SERUM 131 mmol/L (136-145)
[2019-10-27 07:08] LABS: BASOPHIL % 0.3 % (0-2)
[2019-10-27 07:12] LABS: PLATELET COUNT 520 x10^3mcL (130-400); RED CELL DISTRIBUTION WIDTH 18.1 % (11.5-14.5)
[2019-10-27 09:16] VITALS: BP 108/52
[2019-10-27 12:20] VITALS: BP 117/55
[2019-10-27 15:23] VITALS: BP 117/55
[2019-10-27 16:18] VITALS: BP 113/60
[2019-10-27 20:25] VITALS: BP 114/56
[2019-10-28 06:42] VITALS: BP 111/70
[2019-10-28 09:04] VITALS: BP 109/55
[2019-10-28 13:17] VITALS: BP 109/53
[2019-10-28 16:19] VITALS: BP 97/50
[2019-10-28 20:35] VITALS: BP 102/57
[2019-10-29 05:43] VITALS: BP 118/47
[2019-10-29 06:43] LABS: BASOPHIL % 0.4 % (0-2)
[2019-10-29 06:53] LABS: CALCIUM 8.9 mg/dL (8.5-10.1); CARBON DIOXIDE 23.3 mmol/L (21-32); CHLORIDE SERUM 97 mmol/L (98-107); CREATININE SERUM 0.8 mg/dL (0.7-1.3); GLUCOSE SERUM 110 mg/dL (74-106); POTASSIUM SERUM 4.7 mmol/L (3.5-5.1); SODIUM SERUM 131 mmol/L (136-145)
[2019-10-29 06:59] LABS: PLATELET COUNT 470 x10^3mcL (130-400); RED CELL DISTRIBUTION WIDTH 17.2 % (11.5-14.5)
[2019-10-29 08:58] VITALS: BP 95/50
[2019-10-29 12:16] VITALS: BP 106/53
[2019-10-29 20:16] VITALS: BP 111/55
[2019-10-30] VITALS (10 sets, daily range): BP systolic 103–140; BP diastolic 48–92
[2019-10-30 06:53] LABS: CALCIUM 8.8 mg/dL (8.5-10.1); CARBON DIOXIDE 24.6 mmol/L (21-32); CHLORIDE SERUM 95 mmol/L (98-107); CREATININE SERUM 0.8 mg/dL (0.7-1.3); GLUCOSE SERUM 106 mg/dL (74-106); SODIUM SERUM 129 mmol/L (136-145)
[2019-10-30 07:43] LABS: BASOPHIL % 0.3 % (0-2)
[2019-10-30 08:10] LABS: PLATELET COUNT 484 x10^3mcL (130-400); RED CELL DISTRIBUTION WIDTH 17.3 % (11.5-14.5)
[2019-10-31 06:05] VITALS: BP 108/54
[2019-10-31 06:59] LABS: CALCIUM 8.6 mg/dL (8.5-10.1); CARBON DIOXIDE 23.1 mmol/L (21-32); CHLORIDE SERUM 95 mmol/L (98-107); CREATININE SERUM 0.7 mg/dL (0.7-1.3); GLUCOSE SERUM 93 mg/dL (74-106); POTASSIUM SERUM 4.8 mmol/L (3.5-5.1); SODIUM SERUM 130 mmol/L (136-145)
[2019-10-31 07:20] LABS: BASOPHIL % 0.4 % (0-2)
[2019-10-31 07:23] LABS: RED CELL DISTRIBUTION WIDTH 16.7 % (11.5-14.5)
[2019-10-31 08:34] LABS: PLATELET COUNT 524 x10^3mcL (130-400)
[2019-10-31 09:23] VITALS: BP 98/44
[2019-10-31 13:00] VITALS: BP 116/59
[2019-10-31 16:30] VITALS: BP 109/57
[2019-10-31 21:54] VITALS: BP 110/47
[2019-11-01 05:34] VITALS: BP 116/56
[2019-11-01 07:30] LABS: CALCIUM 8.5 mg/dL (8.5-10.1); CARBON DIOXIDE 25.5 mmol/L (21-32); CHLORIDE SERUM 95 mmol/L (98-107); CREATININE SERUM 0.7 mg/dL (0.7-1.3); GLUCOSE SERUM 109 mg/dL (74-106); POTASSIUM SERUM 4.5 mmol/L (3.5-5.1); SODIUM SERUM 129 mmol/L (136-145)
[2019-11-01 08:27] LABS: BASOPHIL % 0.2 % (0-2)
[2019-11-01 08:31] LABS: RED CELL DISTRIBUTION WIDTH 17.6 % (11.5-14.5)
[2019-11-01 08:34] LABS: PLATELET COUNT 521 x10^3mcL (130-400)
[2019-11-01 08:45] VITALS: BP 124/55
[2019-11-01 12:08] VITALS: BP 122/74
[2019-11-01 16:24] VITALS: BP 111/55
[2019-11-01 21:00] VITALS: BP 112/55
[2019-11-01 22:03] VITALS: BP 111/55
[2019-11-02 05:59] VITALS: BP 114/56
[2019-11-02 08:00] VITALS: BP 109/58
[2019-11-02 12:04] VITALS: BP 114/63
[2019-11-02 16:19] VITALS: BP 124/65
== END 2019-11-02 18:46 | DRG 871 ==
LOC: ED 14:09 → MU 15:51 → DU 15:51 → MU 18:25 → DU 10-25 04:09
PROVIDERS: Emergency Medicine; Internal Medicine Gastroenterology; Internal Medicine Hematology & Oncology; ADMIT Internal Medicine; ATTEND Internal Medicine
PROC: 0DJ08ZZ Inspection of Upper Intestinal Tract, Via Natural or Artificial Opening Endoscopic (ICD-10-PCS; 2019-10-30)
PROC: 0FB23ZX Excision of Left Lobe Liver, Percutaneous Approach, Diagnostic (ICD-10-PCS; principal; 2019-10-30 11:45)
DX: A41.9 Sepsis, unspecified organism (principal); J18.9 Pneumonia, unspecified organism; J96.01 Acute respiratory failure with hypoxia; E43 Unspecified severe protein-calorie malnutrition; K27.4 Chronic or unspecified peptic ulcer, site unspecified, with hemorrhage; E87.1 Hypo-osmolality and hyponatremia; C22.0 Liver cell carcinoma; R65.20 Severe sepsis without septic shock; K74.60 Unspecified cirrhosis of liver; Z20.828 Contact with and (suspected) exposure to other viral communicable diseases; I10 Essential (primary) hypertension; E11.9 Type 2 diabetes mellitus without complications; Z83.3 Family history of diabetes mellitus; Z82.49 Family history of ischemic heart disease and other diseases of the circulatory system; Z80.0 Family history of malignant neoplasm of digestive organs; Z80.8 Family history of malignant neoplasm of other organs or systems; Z79.899 Other long term (current) drug therapy; Z79.82 Long term (current) use of aspirin; Z79.84 Long term (current) use of oral hypoglycemic drugs; D64.9 Anemia, unspecified; Z68.22 Body mass index [BMI] 22.0-22.9, adult
CPT/HCPCS: 43235; 82962; 83880; 84153; 84439; 88344; 97116-GP; 97530-GP; C9113; G0378; J0456; J0696; J1200; J1610; J2001; J2250; J2310; J3010; J3490; J7030; J7040; J7060; J8597; Q0092; Q9967; U0003-CS